=== PATIENT | female | born 1955 | race Caucasian/White ===

== ENCOUNTER 2020-03-09 18:54 | Emergency (ER) | payer BC, OTHER ==
[~2020-03-09] VITALS: Ht 172.7 cm; Wt 76.2 kg
[2020-03-09 19:05] VITALS: BP_SYST 140
[2020-03-09] MEDS ORDERED: KETOROLAC TROMETHAMINE 60 MG/2 ML VIAL IM ONE ×2 (20:30→21:30)
[2020-03-09] MEDS ORDERED: cefTRIAXone 250 MG VIAL IM ONE (21:30)
[2020-03-09] MEDS ORDERED: AZITHROMYCIN 250 MG TABLET PO ONE (21:30)
[2020-03-09 22:30] VITALS: BP_SYST 129
== END 2020-03-09 22:30 | disposition home or self-care (01) ==
LOC: SED 18:54
DX: S29.012A Strain of muscle and tendon of back wall of thorax, initial encounter (principal); R03.0 Elevated blood-pressure reading, without diagnosis of hypertension; X50.9XXA Other and unspecified overexertion or strenuous movements or postures, initial encounter; Y93.89 Activity, other specified; Y92.89 Other specified places as the place of occurrence of the external cause; Y99.8 Other external cause status
CPT/HCPCS: 71045; 71250; 96372; 99284; J1885

== ENCOUNTER 2020-04-28 17:20 | Emergency (ER) | payer OTHER ==
[~2020-04-28] VITALS: Ht 167.6 cm; Wt 75.7 kg
[2020-04-28 17:33] VITALS: BP_SYST 128
--- NOTE | 2020-04-28 17:40 | NUR ---
Patient triaged and placed in waiting room. VSS and patient appears in no acute distress at this time. Awaiting available bed, and MD notified of need for MSE.
--- NOTE | 2020-04-28 18:07 | NUR ---
Patient to [facility] chair for evaluation. Side rails up. Report given to NAVARRO Ko.
--- NOTE | 2020-04-28 18:07 | NUR ---
Patient to ER bed H1 to gown for evaluation. Side rails up.
--- NOTE | 2020-04-28 18:08 | NUR ---
Pt brought by self , A&Ox4, pt presents to ER with intermittent nosebleed for the last weeks, skin pink and warm, cap refill <3, VSS, respirations even and unlabored.
--- NOTE | 2020-04-28 18:27 | NUR ---
Awilda Beach NP at bedside examining patient
[2020-04-28] MEDS ORDERED: OXYMETAZOLINE HCL 0.05% NASAL SPRAY NS ONE (18:45)
[2020-04-28 19:31] LABS: BASOPHILS # (AUTO) 0.1 K/uL (0.0-0.2); BASOPHILS % (AUTO) 0.9 % (0.0-2.0); EOSINOPHILS # (AUTO) 0.2 K/uL (0.0-0.4); EOSINOPHILS % (AUTO) 2.1 % (0.0-4.0); HEMATOCRIT 38.4 % (36-48); LYMPHOCYTES # (AUTO) 2.4 K/uL (1.0-5.5); LYMPHOCYTES % (AUTO) 32.2 % (20.5-51.5); MEAN CORPUSCULAR HEMOGLOBIN 31 pg (27-31); MEAN CORPUSCULAR HGB CONC 34 % (32-36); MEAN CORPUSCULAR VOLUME 91 fL (79.0-98.0); MONOCYTES # (AUTO) 0.4 K/uL (0.0-1.0); MONOCYTES % (AUTO) 5.1 % (1.7-9.3); NEUTROPHILS # (AUTO) 4.4 K/uL (1.8-7.7); NEUTROPHILS % (AUTO) 59.7 % (40.0-70.0); PLATELET COUNT (AUTO) 222 K/uL (130-430); RED CELL DISTRIBUTION WIDTH 12.7 % (9.0-15.0); WHITE BLOOD COUNT (AUTO) 7.4 K/uL (4.8-10.8)
[2020-04-28 19:53] LABS: PROTHROMBIN TIME 9.6 SECS (9.5-12.5)
[2020-04-28 19:55] LABS: CREATININE 0.96 mg/dL (0.55-1.30); POTASSIUM 3.7 mmol/L (3.5-5.1)
--- NOTE | 2020-04-28 20:45 | NUR ---
Pt A&Ox4, no nosebleed noted, skin pink and warm.
[2020-04-28 21:21] VITALS: BP_SYST 126
--- NOTE | 2020-04-28 21:21 | NUR ---
Patient given written and verbal discharge instructions and verbalizes understanding. ER HVAC ESTIMATOR discussed with patient the results and treatment provided. Patient in stable condition. ID arm band removed. I Rx of AFRIN AND MUPIROCIN given. Patient educated on pain management and to follow up with PMD. Pain Scale 0/10 Opportunity for questions provided and answered. Medication side effect fact sheet provided.
== END 2020-04-28 21:21 | disposition home or self-care (01) ==
LOC: SED 17:20
DX: R04.0 Epistaxis (principal); R03.0 Elevated blood-pressure reading, without diagnosis of hypertension
CPT/HCPCS: 36415; 70486-TC; 80048; 85025; 85610-TC; 99284

== ENCOUNTER 2022-03-01 22:20 | Emergency (ER) | payer OTHER ==
[~2022-03-01] VITALS: Ht 172.7 cm; Wt 77.1 kg
[2022-03-01 22:27] VITALS: BP_SYST 111
[2022-03-01] MEDS ORDERED: OXYCODONE/ACETAMINOPHEN 5-325 TABLET PO ONE (23:45)
[2022-03-02 00:14] LABS: BASOPHILS # (AUTO) 0.1 K/uL (0.0-0.2); BASOPHILS % (AUTO) 0.5 % (0.0-2.0); EOSINOPHILS # (AUTO) 0.1 K/uL (0.0-0.4); HEMATOCRIT 42.9 % (36-48); HEMOGLOBIN 14.5 g/dL (12.0-16.0); LYMPHOCYTES # (AUTO) 1.6 K/uL (1.0-5.5); LYMPHOCYTES % (AUTO) 15.7 % (20.5-51.5); MEAN CORPUSCULAR HEMOGLOBIN 30 pg (27-31); MEAN CORPUSCULAR HGB CONC 34 % (32-36); MEAN CORPUSCULAR VOLUME 89 fL (79.0-98.0); MONOCYTES # (AUTO) 0.3 K/uL (0.0-1.0); MONOCYTES % (AUTO) 3.2 % (1.7-9.3); NEUTROPHILS # (AUTO) 8.3 K/uL (1.8-7.7); NEUTROPHILS % (AUTO) 79.6 % (40.0-70.0); PLATELET COUNT (AUTO) 237 K/uL (130-430); WHITE BLOOD COUNT (AUTO) 10.4 K/uL (4.8-10.8)
[2022-03-02 00:31] LABS: ANION GAP 9 (5-15); CALCIUM 8.5 mg/dL (8.4-11.0); CHLORIDE 102 mmol/L (98-107); CREATININE 0.88 mg/dL (0.55-1.30); GLUCOSE 133 mg/dL (70-99); POTASSIUM 3.3 mmol/L (3.5-5.1); SODIUM SERUM 137 mmol/L (136-145); UREA NITROGEN, BLOOD 18 mg/dL (8-21)
[2022-03-02 00:39] LABS: GFR AFRICAN AMERICAN 82 mL/min (>90)
[2022-03-02 00:40] LABS: ALANINE AMINOTRANSFERASE 29 U/L (12-78); ALBUMIN 3.7 g/dL (3.4-4.8); ASPARTATE AMINOTRANSFERASE 22 U/L (10-37); TOTAL BILIRUBIN 0.1 mg/dL (0.0-1.0)
[2022-03-02] MEDS ORDERED: POTASSIUM CHLORIDE 20 MEQ TAB.PRT.SR PO ONE (00:45)
[2022-03-02] MEDS ORDERED: IBUP-1969 PO (00:51)
[2022-03-02] MEDS ORDERED: HYDR-3917 PO ×2 (00:51→01:02)
[2022-03-02 01:07] LABS: BILIRUBIN,URINE NEGATIVE (NEGATIVE); BLOOD, URINE 2+ (NEGATIVE); CLARITY/URINE SL CLOUDY (CLEAR); COLOR,URINE YELLOW (YELLOW); GLUCOSE,URINE NEGATIVE (NEGATIVE); KETONES,URINE NEGATIVE (NEGATIVE); LEUKOCYTE ESTERASE ,URINE 2+ (NEGATIVE); NITRITE, URINE NEGATIVE (NEGATIVE); PROTEIN URINE NEGATIVE (NEGATIVE); UROBILINOGEN,URINE 0.2 (0.2-1.0)
[2022-03-02 01:32] LABS: BACTERIA,URINE FEW /HPF (None Seen); RBC,URINE 0-3 /HPF (0-3); WBC,URINE 0-3 /HPF (0-3)
[2022-03-02 06:27] VITALS: BP_SYST 111
== END 2022-03-02 06:27 | disposition home or self-care (01) ==
LOC: SED 22:20
DX: S70.01XA Contusion of right hip, initial encounter (principal); E87.6 Hypokalemia; W01.0XXA Fall on same level from slipping, tripping and stumbling without subsequent striking against object, initial encounter; Y93.89 Activity, other specified; Y92.89 Other specified places as the place of occurrence of the external cause; Y99.8 Other external cause status
CPT/HCPCS: 36415; 71045; 73502; 80053; 81000; 84484; 85025; 87086; 93005; 99285